=== PATIENT | female | born 1945 | race Caucasian/White ===

== ENCOUNTER 2017-10-27 09:43 | Emergency (ER) | payer MEDICARE, MEDICAID ==
[~2017-10-27] VITALS: Ht 167.6 cm; Wt 57.0 kg
[~2017-10-27 09:43] MED LIST: ALBU0.63 NEB; ALBU90AE INH; BUDE0.5A INH; CARI250T; CEFD300C37 PO; DOXY100T PO; HYDR-3237 PO; LORA-445 PO; LORA10TA72 PO; MORP-52 PO; NICO-486 TD; PRED10TA14 PO; PRED5TAB PO; TIZA2CAP PO; TRAM100T2; [UNRECOGNIZED DRUG - REMARK]
[2017-10-27 10:29] LABS: BASOPHILS % (AUTO) 1 % (0-1); EOSINOPHILS # (AUTO) 0.06 x10^3/uL (0-0.4); EOSINOPHILS % (AUTO) 0 % (1-7); LYMPHOCYTES # (AUTO) 2.84 x10^3/uL (1-3.4); LYMPHOCYTES % (AUTO) 18 % (22-44); MD NO; MEAN CORPUSCULAR HEMOGLOBIN 30.3 pg (27.0-34.8); MEAN CORPUSCULAR HGB CONC 33.5 g/dL (32.4-35.8); MEAN CORPUSCULAR VOLUME 90.6 fL (80-100); MEAN PLATELET VOLUME 8.1 fL (7.4-10.4); MONOCYTES # (AUTO) 0.73 x10^3/uL (0.2-0.8); MONOCYTES % (AUTO) 5 % (2-9); NEUTROPHILS # (AUTO) 12.04 x10^3/uL (1.8-6.8); NEUTROPHILS % (AUTO) 76 % (42-75); PLATELET COUNT 231 x10^3/uL (130-400); RED BLOOD COUNT 4.83 x10^6/uL (3.82-5.3); RED CELL DISTRIBUTION WIDTH 15.1 % (9.6-15.2)
[2017-10-27 10:40] LABS: ALANINE AMINOTRANSFERASE 22 U/L (12-78); ALBUMIN 3.2 g/dL (3.4-5.0); ANION GAP 6 mmol/L (5-15); CALCIUM 8.6 mg/dL (8.5-10.1); CHLORIDE 105 mmol/L (98-107); CREATININE 0.63 mg/dL (0.55-1.02)
[2017-10-27 10:42] LABS: ALKALINE PHOSPHATASE 55 U/L (45-117); BILIRUBIN,TOTAL 0.3 mg/dL (0.2-1.0); TOTAL PROTEIN 6.3 g/dL (6.4-8.2)
[2017-10-27 12:17] VITALS: BP 145/73
== END 2017-10-27 12:19 | disposition home or self-care (01) ==
LOC: ED 10:47
DX: J44.1 Chronic obstructive pulmonary disease with (acute) exacerbation (principal); I10 Essential (primary) hypertension; F17.210 Nicotine dependence, cigarettes, uncomplicated
CPT/HCPCS: 36415; 71046; 80053; 85025; 93005; 99285; J7512

== ENCOUNTER 2017-11-24 19:38 | Inpatient (IN) | payer MEDICARE, MEDICAID ==
[~2017-11-24] VITALS: Ht 167.6 cm; Wt 51.4 kg
[2017-11-24 20:14] LABS: BASOPHILS # (AUTO) 0.12 x10^3/uL (0-0.1); BASOPHILS % (AUTO) 1 % (0-1); EOSINOPHILS # (AUTO) 0.05 x10^3/uL (0-0.4); EOSINOPHILS % (AUTO) 0 % (1-7); LYMPHOCYTES # (AUTO) 2.29 x10^3/uL (1-3.4); LYMPHOCYTES % (AUTO) 18 % (22-44); MD NO; MEAN CORPUSCULAR HEMOGLOBIN 30.3 pg (27.0-34.8); MEAN CORPUSCULAR HGB CONC 33.1 g/dL (32.4-35.8); MEAN CORPUSCULAR VOLUME 91.5 fL (80-100); MEAN PLATELET VOLUME 8.1 fL (7.4-10.4); MONOCYTES % (AUTO) 8 % (2-9); NEUTROPHILS # (AUTO) 9.48 x10^3/uL (1.8-6.8); NEUTROPHILS % (AUTO) 73 % (42-75); PLATELET COUNT 253 x10^3/uL (130-400); RED BLOOD COUNT 4.94 x10^6/uL (3.82-5.3); RED CELL DISTRIBUTION WIDTH 15.3 % (9.6-15.2)
[2017-11-24 20:23] LABS: ALBUMIN 3.3 g/dL (3.4-5.0); ANION GAP 6 mmol/L (5-15); CALCIUM 9.3 mg/dL (8.5-10.1); CHLORIDE 107 mmol/L (98-107); CREATININE 0.78 mg/dL (0.55-1.02)
[2017-11-24 20:27] LABS: TROPONIN I < 0.015 ng/mL (0.000-0.045)
[2017-11-24] MEDS ORDERED: OMEP-110 PO (21:26)
[2017-11-24] MEDS ORDERED: GABA300C10 PO (21:26)
[2017-11-24] MEDS ORDERED: POLY17PO3 PO (21:26)
[2017-11-24] MEDS ORDERED: ASPI-496 PO (21:26)
[2017-11-24] MEDS ORDERED: MAG355OR35 PO (21:26)
[2017-11-24] MEDS ORDERED: BENZ-17 PO (22:26)
[2017-11-24] MEDS ORDERED: NITR0.4T28 SL (22:26)
[2017-11-24] MEDS ORDERED: CARI350T14 PO (22:26)
[2017-11-24] MEDS ORDERED: ONDANSETRON 2MG/ML, 2ML IVPush PRN ×2 (22:30→23:00)
[2017-11-24] MEDS ORDERED: hydrALAzine 20 MG/ML, 1ML IVPush PRN (23:00)
[2017-11-24] MEDS ORDERED: NITROGLYCERIN 0.4 MG BOTTLE (25 TABS) SL PRN (23:00)
[2017-11-24] MEDS ORDERED: ALBUTEROL SULFATE 2.5 MG/3 ML NEB PRN (23:00)
[2017-11-24] MEDS ORDERED: GUAIFENESIN/DM 200-20MG, 10ML UDC PO PRN (23:00)
[2017-11-24] MEDS: ENOXAPARIN 40 MG/0.4 ML SQ SCH (23:00)
[2017-11-24] MEDS ORDERED: BENZONATATE 100 MG CAPSULE PO PRN (23:00)
[2017-11-24] MEDS ORDERED: ALBUTEROL/IPRATROPIUM 2.5MG/0.5MG, 3 ML NPPB PRN (23:30)
[2017-11-25 00:08] VITALS: BP_SYST 173; BP_SYST 190; BP_DIAS 67; BP_DIAS 81
[2017-11-25] MEDS: ALBUTEROL/IPRATROPIUM 2.5MG/0.5MG, 3 ML NPPB SCH ×6 (00:13→22:25)
[2017-11-25] MEDS: BUDESONIDE 0.5 MG/2 ML INHA INH SCH ×2 (00:23→09:00)
[2017-11-25] MEDS: methylPREDNISolone SOD SUCC 40 MG/ML IVPush SCH ×5 (00:32→23:12)
[2017-11-25] MEDS: SODIUM CHLORIDE 0.9% 1,000 ML IV SCH ×2 (00:32→13:10)
[2017-11-25] MEDS: GABAPENTIN 300 MG CAPSULE PO SCH ×4 (00:32→20:31)
[2017-11-25 06:36] VITALS: BP 163/74
[2017-11-25] MEDS: ENOXAPARIN 40 MG/0.4 ML SQ SCH (08:00)
[2017-11-25] MEDS: LORATADINE 10 MG TABLET PO SCH (09:35)
[2017-11-25] MEDS: ASPIRIN 81 MG TABLET EC PO SCH (09:36)
[2017-11-25] MEDS: POLYETHYLENE GLYCOL 17 GM PACKET PO SCH (09:36)
[2017-11-25] MEDS: ALUMINUM/MAG/SIMETHICONE 30 ML UDC PO SCH (09:36)
[2017-11-25] MEDS: OMEPRAZOLE 20 MG CAPSULE.DR PO SCH (11:19)
[2017-11-25 11:53] VITALS: BP 176/81
[2017-11-25 13:11] VITALS: BP 147/91
[2017-11-25 13:14] VITALS: BP 150/88
[2017-11-25 18:46] VITALS: BP 154/85
[2017-11-26] MEDS: SODIUM CHLORIDE 0.9% 1,000 ML IV SCH (01:45)
[2017-11-26 02:54] VITALS: BP 159/84
[2017-11-26] MEDS: ACETAMINOPHEN 325 MG TABLET PO PRN ×3 (04:11→23:26)
[2017-11-26 05:07] LABS: BASOPHILS # (AUTO) 0.01 x10^3/uL (0-0.1); BASOPHILS % (AUTO) 0 % (0-1); EOSINOPHILS % (AUTO) 0 % (1-7); LYMPHOCYTES # (AUTO) 0.61 x10^3/uL (1-3.4); LYMPHOCYTES % (AUTO) 6 % (22-44); MD NO; MEAN CORPUSCULAR HEMOGLOBIN 29.8 pg (27.0-34.8); MEAN CORPUSCULAR HGB CONC 32.9 g/dL (32.4-35.8); MEAN CORPUSCULAR VOLUME 90.7 fL (80-100); MEAN PLATELET VOLUME 8.5 fL (7.4-10.4); MONOCYTES % (AUTO) 2 % (2-9); NEUTROPHILS # (AUTO) 9.37 x10^3/uL (1.8-6.8); NEUTROPHILS % (AUTO) 92 % (42-75); PLATELET COUNT 257 x10^3/uL (130-400); RED BLOOD COUNT 4.55 x10^6/uL (3.82-5.3); RED CELL DISTRIBUTION WIDTH 15.6 % (9.6-15.2)
[2017-11-26 05:18] LABS: ANION GAP 8 mmol/L (5-15); CHLORIDE 105 mmol/L (98-107); CREATININE 0.65 mg/dL (0.55-1.02)
[2017-11-26] MEDS: methylPREDNISolone SOD SUCC 40 MG/ML IVPush SCH (05:33)
[2017-11-26] MEDS: ALBUTEROL/IPRATROPIUM 2.5MG/0.5MG, 3 ML NPPB SCH ×5 (06:00→22:29)
[2017-11-26 07:05] VITALS: BP 146/86
[2017-11-26] MEDS: ENOXAPARIN 40 MG/0.4 ML SQ SCH (08:00)
[2017-11-26] MEDS: LORATADINE 10 MG TABLET PO SCH (08:05)
[2017-11-26] MEDS: OMEPRAZOLE 20 MG CAPSULE.DR PO SCH (08:06)
[2017-11-26] MEDS: ASPIRIN 81 MG TABLET EC PO SCH (08:06)
[2017-11-26] MEDS: GABAPENTIN 300 MG CAPSULE PO SCH ×3 (08:06→20:57)
[2017-11-26] MEDS: POLYETHYLENE GLYCOL 17 GM PACKET PO SCH (08:06)
[2017-11-26] MEDS: ALUMINUM/MAG/SIMETHICONE 30 ML UDC PO SCH (08:07)
[2017-11-26] MEDS: FLUTICASONE/VILANTEROL 100-25MCG/INH INH SCH (09:36)
[2017-11-26] MEDS: LISINOPRIL 10 MG TABLET PO SCH (10:45)
[2017-11-26] MEDS: predniSONE 50MG TABLET PO SCH (10:45)
[2017-11-26 13:33] VITALS: BP 147/89
[2017-11-26] MEDS ORDERED: FLUT1AER INH (16:58)
[2017-11-26] MEDS ORDERED: PRED50TA PO (16:58)
[2017-11-26] MEDS ORDERED: GUAI5SYR PO (16:58)
[2017-11-26] MEDS ORDERED: LISI-167 PO (16:58)
[2017-11-26] MEDS ORDERED: methylPREDNISolone SOD SUCC 40 MG/ML IVPush SCH (17:00)
[2017-11-26 19:45] VITALS: BP 171/93
[2017-11-26] MEDS ORDERED: NICOTINE 14MG/24 HR PATCH.TD24 TD SCH (20:00)
[2017-11-26 20:33] VITALS: BP 166/82
[2017-11-26] MEDS ORDERED: BISACODYL 5 MG EC TABLET PO PRN (22:30)
[2017-11-27 02:00] VITALS: BP 113/69
[2017-11-27 06:39] VITALS: BP 150/75
[2017-11-27] MEDS: ALBUTEROL/IPRATROPIUM 2.5MG/0.5MG, 3 ML NPPB SCH ×2 (07:30→11:55)
[2017-11-27] MEDS: ACETAMINOPHEN 325 MG TABLET PO PRN ×2 (07:42→12:31)
[2017-11-27] MEDS: predniSONE 50MG TABLET PO SCH (07:42)
[2017-11-27] MEDS: ENOXAPARIN 40 MG/0.4 ML SQ SCH (08:00)
[2017-11-27] MEDS: ALUMINUM/MAG/SIMETHICONE 30 ML UDC PO SCH (09:00)
[2017-11-27] MEDS: FLUTICASONE/VILANTEROL 100-25MCG/INH INH SCH (09:24)
[2017-11-27] MEDS: LORATADINE 10 MG TABLET PO SCH (09:25)
[2017-11-27] MEDS: POLYETHYLENE GLYCOL 17 GM PACKET PO SCH (09:25)
[2017-11-27] MEDS: OMEPRAZOLE 20 MG CAPSULE.DR PO SCH (09:25)
[2017-11-27] MEDS: ASPIRIN 81 MG TABLET EC PO SCH (09:25)
[2017-11-27] MEDS: GABAPENTIN 300 MG CAPSULE PO SCH (09:26)
[2017-11-27] MEDS: LISINOPRIL 10 MG TABLET PO SCH (09:26)
== END 2017-11-27 13:38 | DRG 189 ==
LOC: ED 22:00 → EDIP 22:27 → 3NE 11-25 00:04
PROVIDERS: ADMIT Hospitalist; ATTEND Hospitalist
DX: J96.21 Acute and chronic respiratory failure with hypoxia (principal); I11.0 Hypertensive heart disease with heart failure; I50.9 Heart failure, unspecified; Z99.81 Dependence on supplemental oxygen; J44.1 Chronic obstructive pulmonary disease with (acute) exacerbation; G89.29 Other chronic pain; M54.9 Dorsalgia, unspecified; R62.7 Adult failure to thrive; F17.210 Nicotine dependence, cigarettes, uncomplicated; Z90.710 Acquired absence of both cervix and uterus; Z88.1 Allergy status to other antibiotic agents; Z91.048 Other nonmedicinal substance allergy status; Z87.11 Personal history of peptic ulcer disease
CPT/HCPCS: 36415; 71045; 80048; 82040; 83605; 83880; 84145; 84484; 85025; 87040; 94640; 99285; J7620; J7626; J0360; J2920; J7030; J7512

== ENCOUNTER 2018-01-24 01:25 | Inpatient (IN) | payer MEDICARE, MEDICAID ==
[~2018-01-24] VITALS: Ht 167.6 cm; Wt 54.4 kg
[~2018-01-24 01:25] MED LIST changes: +ASPI-496 PO; +BENZ-17 PO; +CARI350T14 PO; +FLUT1AER INH; +GABA300C10 PO; +GUAI5SYR PO; +LISI-167 PO; +MAG355OR35 PO; +NITR0.4T28 SL; +OMEP-110 PO; +POLY17PO3 PO; +PRED50TA PO; -TRAM100T2; +TRAM100T33
[2018-01-24] MEDS ORDERED: PROMETHAZINE 25 MG/ML, 1ML ONE (01:55)
[2018-01-24] MEDS ORDERED: MAALOX/HYOSCYAMINE/LIDOCAINE 45 ML BTL ONE (01:55)
[2018-01-24] MEDS ORDERED: PROMETHAZINE 25 MG/ML, 1ML IM ONE (02:00)
[2018-01-24] MEDS ORDERED: MAALOX/HYOSCYAMINE/LIDOCAINE 45 ML BTL PO ONE (02:00)
[2018-01-24 02:01] LABS: MEAN CORPUSCULAR HEMOGLOBIN 30.3 pg (27.0-34.8); MEAN CORPUSCULAR HGB CONC 33.6 g/dL (32.4-35.8); MEAN CORPUSCULAR VOLUME 90.3 fL (80-100); MEAN PLATELET VOLUME 9.2 fL (7.4-10.4); PLATELET COUNT 307 x10^3/uL (130-400); RED BLOOD COUNT 4.96 x10^6/uL (3.82-5.3)
[2018-01-24 02:07] LABS: PROTHROMBIN TIME 10.3 Seconds (9.6-11.5)
[2018-01-24 02:10] LABS: ALANINE AMINOTRANSFERASE 17 U/L (12-78); ALBUMIN 2.9 g/dL (3.4-5.0); ANION GAP 13 mmol/L (5-15); CHLORIDE 91 mmol/L (98-107); CREATININE 0.72 mg/dL (0.55-1.02)
[2018-01-24 02:15] LABS: ALKALINE PHOSPHATASE 54 U/L (45-117); BILIRUBIN,TOTAL 0.5 mg/dL (0.2-1.0); TOTAL PROTEIN 6.1 g/dL (6.4-8.2); TROPONIN I < 0.015 ng/mL (0.000-0.045)
[2018-01-24] MEDS ORDERED: POTASSIUM CHLORIDE 40 MEQ in SODIUM CHLORIDE 0.9% 500 ML IV ONE (02:30)
[2018-01-24] MEDS ORDERED: AZITHROMYCIN 500 MG in SODIUM CHLORIDE 0.9% 250 ML IVPB ONE (02:30)
[2018-01-24] MEDS ORDERED: CEFTRIAXONE PMX 1GM/50ML 50 ML IVPB ONE (02:30)
[2018-01-24] MEDS ORDERED: ALBUTEROL/IPRATROPIUM 2.5MG/0.5MG, 3 ML NPPB ONE (02:30)
[2018-01-24] MEDS ORDERED: methylPREDNISolone SOD SUCC 125 MG/2 ML IVP ONE (02:30)
[2018-01-24] MEDS ORDERED: SODIUM CHLORIDE FLUSH 10ML SYR IVF ONE (02:30)
[2018-01-24 02:34] LABS: BASOPHILS # (AUTO) 0.06 x10^3/uL (0-0.1); BASOPHILS % (AUTO) 0 % (0-1); EOSINOPHILS % (AUTO) 0 % (1-7); LYMPHOCYTES # (AUTO) 1.11 x10^3/uL (1-3.4); LYMPHOCYTES % (AUTO) 6 % (22-44); MD SCAN; MONOCYTES % (AUTO) 4 % (2-9); NEUTROPHILS # (AUTO) 17.76 x10^3/uL (1.8-6.8); NEUTROPHILS % (AUTO) 91 % (42-75)
[2018-01-24] MEDS ORDERED: POTASSIUM CHLORIDE 20 MEQ TAB.ER.PRT PO ONE (03:00)
[2018-01-24] MEDS ORDERED: POTASSIUM CHLORIDE 10% 40 MEQ/30 ML UDC PO ONE (03:00)
[2018-01-24] MEDS ORDERED: CEFTRIAXONE PMX 1GM/50ML 50 ML ONE (03:01)
[2018-01-24] MEDS ORDERED: methylPREDNISolone SOD SUCC 125 MG/2 ML ONE (03:01)
[2018-01-24 03:57] VITALS: BP 132/82
[2018-01-24] MEDS ORDERED: METH750T2 PO (04:43)
[2018-01-24] MEDS ORDERED: CARI350T14 PO (04:43)
[2018-01-24] MEDS ORDERED: MELA1TAB8 PO (04:43)
[2018-01-24] MEDS ORDERED: NS + 20MEQ KCL 1,000 ML IV SCH (05:06)
[2018-01-24] MEDS: ENOXAPARIN 40 MG/0.4 ML SQ SCH (05:30)
[2018-01-24] MEDS ORDERED: NITROGLYCERIN 0.4 MG BOTTLE (25 TABS) SL PRN (05:30)
[2018-01-24] MEDS ORDERED: HYDROcodone/APAP 5/325 TABLET PO PRN (05:30)
[2018-01-24] MEDS ORDERED: CARISOPRODOL 350 MG TABLET PO PRN (05:30)
[2018-01-24] MEDS ORDERED: POLYETHYLENE GLYCOL 17 GM PACKET PO PRN (05:30)
[2018-01-24] MEDS ORDERED: TEMPLATE NON-FORMULARY MED. (Albuterol Sulfate (Proair Respiclick) 2 PUFF(S)) INH PRN (05:30)
[2018-01-24] MEDS ORDERED: GUAIFENESIN/DM 100-10MG, 5ML UDC PO PRN (05:30)
[2018-01-24] MEDS ORDERED: DOCUSATE 100 MG CAPSULE PO PRN (05:30)
[2018-01-24] MEDS ORDERED: ALBUTEROL SULFATE 2.5 MG/3 ML NPPB PRN (05:30)
[2018-01-24] MEDS ORDERED: morphine SULFATE 10 MG/ML, 1ML IVPush PRN (05:30)
[2018-01-24] MEDS ORDERED: ONDANSETRON 2MG/ML, 2ML IVPush PRN (05:30)
[2018-01-24] MEDS: AZITHROMYCIN 500 MG in SODIUM CHLORIDE 0.9% 250 ML IV SCH (05:47)
[2018-01-24] MEDS: METHOCARBAMOL 750 MG TABLET PO SCH ×4 (05:48→22:30)
[2018-01-24] MEDS: NICOTINE 7 MG/24 HR PATCH.TD24 TD SCH (05:48)
[2018-01-24 06:37] VITALS: BP 107/71
[2018-01-24] MEDS: ALBUTEROL/IPRATROPIUM 2.5MG/0.5MG, 3 ML NPPB SCH ×4 (07:00→20:21)
[2018-01-24] MEDS: POLYETHYLENE GLYCOL 17 GM PACKET PO SCH (08:33)
[2018-01-24] MEDS: ALUMINUM/MAG/SIMETHICONE 30 ML UDC PO SCH (08:33)
[2018-01-24] MEDS: FAMOTIDINE 20 MG TABLET PO SCH ×2 (08:34→22:30)
[2018-01-24] MEDS: LORATADINE 10 MG TABLET PO SCH (08:34)
[2018-01-24] MEDS: GABAPENTIN 300 MG CAPSULE PO SCH ×3 (08:34→22:30)
[2018-01-24] MEDS: SENNA/DOCUSATE TABLET PO SCH (08:34)
[2018-01-24] MEDS: ASPIRIN 81 MG TABLET EC PO SCH (08:34)
[2018-01-24] MEDS: methylPREDNISolone SOD SUCC 125 MG/2 ML IVPush SCH ×2 (11:45→22:30)
[2018-01-24 12:21] VITALS: BP 102/66
[2018-01-24 13:46] LABS: ANION GAP 9 mmol/L (5-15); CALCIUM 8.4 mg/dL (8.5-10.1); CHLORIDE 97 mmol/L (98-107)
[2018-01-24 13:47] LABS: CREATININE 0.72 mg/dL (0.55-1.02)
[2018-01-24 20:00] VITALS: BP 129/74
[2018-01-24] MEDS ORDERED: MELATONIN 5 MG TABLET PO SCH (21:00)
[2018-01-24] MEDS: PYRIDOXINE 25MG TABLET PO SCH (22:30)
[2018-01-24 23:24] LABS: CLOSTRIDIUM DIFFICILE ANTIGEN POSITIVE; CLOSTRIDIUM DIFFICILE TOXIN NEGATIVE (Negative)
[2018-01-25] VITALS (7 sets, daily range): BP systolic 108–130; BP diastolic 69–79
[2018-01-25] MEDS: VANCOMYCIN 50 MG/ML ORAL SUSP PO SCH ×4 (01:05→18:30)
[2018-01-25] MEDS: CEFTRIAXONE PMX 1GM/50ML 50 ML IV SCH (03:55)
[2018-01-25] MEDS: ENOXAPARIN 40 MG/0.4 ML SQ SCH (05:30)
[2018-01-25 05:43] LABS: CALCIUM 9.3 mg/dL (8.5-10.1); CHLORIDE 99 mmol/L (98-107)
[2018-01-25 05:47] LABS: ANION GAP 13 mmol/L (5-15); CREATININE 0.92 mg/dL (0.55-1.02)
[2018-01-25] MEDS: AZITHROMYCIN 500 MG in SODIUM CHLORIDE 0.9% 250 ML IV SCH (05:52)
[2018-01-25] MEDS: NICOTINE 7 MG/24 HR PATCH.TD24 TD SCH (05:53)
[2018-01-25] MEDS: methylPREDNISolone SOD SUCC 125 MG/2 ML IVPush SCH ×2 (05:53→18:29)
[2018-01-25] MEDS: METHOCARBAMOL 750 MG TABLET PO SCH ×4 (05:53→21:00)
[2018-01-25] MEDS: ALBUTEROL/IPRATROPIUM 2.5MG/0.5MG, 3 ML NPPB SCH ×4 (07:00→20:01)
[2018-01-25] MEDS: POLYETHYLENE GLYCOL 17 GM PACKET PO SCH (09:00)
[2018-01-25] MEDS: SENNA/DOCUSATE TABLET PO SCH (09:00)
[2018-01-25 09:48] LABS: MEAN CORPUSCULAR HGB CONC 33.3 g/dL (32.4-35.8); MEAN CORPUSCULAR VOLUME 89.9 fL (80-100); PLATELET COUNT 342 x10^3/uL (130-400); RED BLOOD COUNT 4.87 x10^6/uL (3.82-5.3); RED CELL DISTRIBUTION WIDTH 14.4 % (9.6-15.2)
[2018-01-25] MEDS: GABAPENTIN 300 MG CAPSULE PO SCH ×3 (10:49→21:28)
[2018-01-25] MEDS: ASPIRIN 81 MG TABLET EC PO SCH (10:49)
[2018-01-25] MEDS: LORATADINE 10 MG TABLET PO SCH (10:49)
[2018-01-25] MEDS: FAMOTIDINE 20 MG TABLET PO SCH ×2 (10:49→21:27)
[2018-01-25] MEDS: ALUMINUM/MAG/SIMETHICONE 30 ML UDC PO SCH (10:49)
[2018-01-25 12:27] LABS: MD YES
[2018-01-25 12:28] LABS: BAND#(MANUAL) 0.49 x10^3/uL; BANDS%(MANUAL) 2 % (0-7); LYMPH#(MANUAL) 2.19 x10^3/uL (1-3.4); LYMPHS% (MANUAL) 9 % (22-44); MONOS#(MANUAL) 0.24 x10^3/uL (0.3-2.7); MONOS% (MANUAL) 1 % (2-9); SEG#(MANUAL) 21.38 x10^3/uL (1.8-6.8); SEGS% (MANUAL) 88 % (42-75)
[2018-01-25 12:31] LABS: <PLATELET ESTIMATE> ADEQUATE; <RBC MORPHOLOGY> NORMAL
[2018-01-25 12:32] LABS: LARGE PLATELETS 1+
[2018-01-25] MEDS: PYRIDOXINE 25MG TABLET PO SCH (21:27)
[2018-01-26] MEDS: VANCOMYCIN 50 MG/ML ORAL SUSP PO SCH ×5 (00:10→23:57)
[2018-01-26 03:29] VITALS: BP 102/57
[2018-01-26] MEDS: CEFTRIAXONE PMX 1GM/50ML 50 ML IV SCH (03:43)
[2018-01-26] MEDS: ENOXAPARIN 40 MG/0.4 ML SQ SCH (05:03)
[2018-01-26] MEDS: AZITHROMYCIN 500 MG in SODIUM CHLORIDE 0.9% 250 ML IV SCH (05:03)
[2018-01-26] MEDS: NICOTINE 7 MG/24 HR PATCH.TD24 TD SCH (05:03)
[2018-01-26] MEDS: methylPREDNISolone SOD SUCC 125 MG/2 ML IVPush SCH (05:03)
[2018-01-26 06:11] LABS: MEAN CORPUSCULAR HEMOGLOBIN 30.6 pg (27.0-34.8); MEAN CORPUSCULAR HGB CONC 33.4 g/dL (32.4-35.8); MEAN CORPUSCULAR VOLUME 91.8 fL (80-100); PLATELET COUNT 316 x10^3/uL (130-400); RED BLOOD COUNT 4.24 x10^6/uL (3.82-5.3); RED CELL DISTRIBUTION WIDTH 14.5 % (9.6-15.2)
[2018-01-26] MEDS: METHOCARBAMOL 750 MG TABLET PO SCH ×4 (06:14→21:34)
[2018-01-26 06:24] LABS: ANION GAP 7 mmol/L (5-15); CALCIUM 8.6 mg/dL (8.5-10.1); CHLORIDE 101 mmol/L (98-107); CREATININE 0.78 mg/dL (0.55-1.02)
[2018-01-26 06:47] LABS: BASOPHILS # (AUTO) 0.09 x10^3/uL (0-0.1); BASOPHILS % (AUTO) 1 % (0-1); EOSINOPHILS % (AUTO) 0 % (1-7); LYMPHOCYTES # (AUTO) 0.89 x10^3/uL (1-3.4); LYMPHOCYTES % (AUTO) 5 % (22-44); MD SCAN; MONOCYTES # (AUTO) 0.72 x10^3/uL (0.2-0.8); MONOCYTES % (AUTO) 4 % (2-9); NEUTROPHILS % (AUTO) 91 % (42-75)
[2018-01-26] MEDS: ALBUTEROL/IPRATROPIUM 2.5MG/0.5MG, 3 ML NPPB SCH ×4 (07:01→17:15)
[2018-01-26 07:12] VITALS: BP 113/65
[2018-01-26] MEDS: FAMOTIDINE 20 MG TABLET PO SCH ×2 (09:47→21:34)
[2018-01-26] MEDS: GABAPENTIN 300 MG CAPSULE PO SCH ×3 (09:47→21:34)
[2018-01-26] MEDS: LORATADINE 10 MG TABLET PO SCH (09:48)
[2018-01-26] MEDS: ALUMINUM/MAG/SIMETHICONE 30 ML UDC PO SCH (09:48)
[2018-01-26] MEDS: ASPIRIN 81 MG TABLET EC PO SCH (09:48)
[2018-01-26] MEDS: SENNA/DOCUSATE TABLET PO SCH (09:49)
[2018-01-26] MEDS: POLYETHYLENE GLYCOL 17 GM PACKET PO SCH (09:49)
[2018-01-26 13:38] VITALS: BP 113/72
[2018-01-26 19:30] VITALS: BP 123/73
[2018-01-26] MEDS: PYRIDOXINE 25MG TABLET PO SCH (21:34)
[2018-01-27] MEDS: HYDROcodone/APAP 5/325 TABLET PO PRN
[2018-01-27 01:22] VITALS: BP 137/82
[2018-01-27] MEDS: CEFTRIAXONE PMX 1GM/50ML 50 ML IV SCH (03:25)
[2018-01-27] MEDS: ENOXAPARIN 40 MG/0.4 ML SQ SCH (05:30)
[2018-01-27] MEDS: NICOTINE 7 MG/24 HR PATCH.TD24 TD SCH (05:30)
[2018-01-27] MEDS: VANCOMYCIN 50 MG/ML ORAL SUSP PO SCH ×3 (05:48→16:54)
[2018-01-27] MEDS: METHOCARBAMOL 750 MG TABLET PO SCH ×4 (05:48→20:41)
[2018-01-27] MEDS: AZITHROMYCIN 500 MG in SODIUM CHLORIDE 0.9% 250 ML IV SCH (05:49)
[2018-01-27 05:59] LABS: MEAN CORPUSCULAR HEMOGLOBIN 30.2 pg (27.0-34.8); MEAN CORPUSCULAR HGB CONC 33.1 g/dL (32.4-35.8); MEAN CORPUSCULAR VOLUME 91.3 fL (80-100); MEAN PLATELET VOLUME 8.9 fL (7.4-10.4); PLATELET COUNT 294 x10^3/uL (130-400); RED BLOOD COUNT 3.92 x10^6/uL (3.82-5.3); RED CELL DISTRIBUTION WIDTH 14.5 % (9.6-15.2)
[2018-01-27 06:05] LABS: CHLORIDE 103 mmol/L (98-107)
[2018-01-27 06:43] LABS: BASOPHILS # (AUTO) 0.02 x10^3/uL (0-0.1); BASOPHILS % (AUTO) 0 % (0-1); EOSINOPHILS # (AUTO) 0.01 x10^3/uL (0-0.4); EOSINOPHILS % (AUTO) 0 % (1-7); LYMPHOCYTES # (AUTO) 2.31 x10^3/uL (1-3.4); LYMPHOCYTES % (AUTO) 18 % (22-44); MD SCAN; MONOCYTES # (AUTO) 1.17 x10^3/uL (0.2-0.8); MONOCYTES % (AUTO) 9 % (2-9); NEUTROPHILS # (AUTO) 9.11 x10^3/uL (1.8-6.8); NEUTROPHILS % (AUTO) 72 % (42-75)
[2018-01-27 06:51] LABS: ALANINE AMINOTRANSFERASE 16 U/L (12-78); ALBUMIN 2.3 g/dL (3.4-5.0); ALKALINE PHOSPHATASE 40 U/L (45-117); ANION GAP 6 mmol/L (5-15); BILIRUBIN,TOTAL 0.2 mg/dL (0.2-1.0); CALCIUM 8.1 mg/dL (8.5-10.1); CREATININE 0.62 mg/dL (0.55-1.02); TOTAL PROTEIN 4.5 g/dL (6.4-8.2)
[2018-01-27] MEDS: ALBUTEROL/IPRATROPIUM 2.5MG/0.5MG, 3 ML NPPB SCH ×4 (06:55→21:05)
[2018-01-27 07:00] VITALS: BP 132/79
[2018-01-27] MEDS ORDERED: POTASSIUM PHOSPHATE 44 MEQ in SODIUM CHLORIDE 0.9% 500 ML IV ONE (09:00)
[2018-01-27] MEDS: SENNA/DOCUSATE TABLET PO SCH (09:22)
[2018-01-27] MEDS: POLYETHYLENE GLYCOL 17 GM PACKET PO SCH (09:22)
[2018-01-27] MEDS: ALUMINUM/MAG/SIMETHICONE 30 ML UDC PO SCH (09:22)
[2018-01-27] MEDS: ASPIRIN 81 MG TABLET EC PO SCH (09:23)
[2018-01-27] MEDS: GABAPENTIN 300 MG CAPSULE PO SCH ×3 (09:23→20:42)
[2018-01-27] MEDS: LORATADINE 10 MG TABLET PO SCH (09:23)
[2018-01-27] MEDS: FAMOTIDINE 20 MG TABLET PO SCH ×2 (09:23→20:42)
[2018-01-27 14:00] VITALS: BP 112/74
[2018-01-27 16:32] VITALS: BP 112/74
[2018-01-27 19:57] VITALS: BP 122/74
[2018-01-27] MEDS: PYRIDOXINE 25MG TABLET PO SCH (20:41)
[2018-01-28] MEDS: VANCOMYCIN 50 MG/ML ORAL SUSP PO SCH ×4 (00:13→18:00)
[2018-01-28 01:49] VITALS: BP 146/85
[2018-01-28] MEDS: CEFTRIAXONE PMX 1GM/50ML 50 ML IV SCH (03:40)
[2018-01-28] MEDS: ALBUTEROL/IPRATROPIUM 2.5MG/0.5MG, 3 ML NPPB PRN (04:57)
[2018-01-28] MEDS: ENOXAPARIN 40 MG/0.4 ML SQ SCH ×2 (05:30→05:51)
[2018-01-28] MEDS: NICOTINE 7 MG/24 HR PATCH.TD24 TD SCH (05:30)
[2018-01-28] MEDS: AZITHROMYCIN 500 MG in SODIUM CHLORIDE 0.9% 250 ML IV SCH (05:51)
[2018-01-28] MEDS: METHOCARBAMOL 750 MG TABLET PO SCH ×4 (05:51→21:29)
[2018-01-28 06:32] LABS: BASOPHILS # (AUTO) 0.11 x10^3/uL (0-0.1); BASOPHILS % (AUTO) 1 % (0-1); EOSINOPHILS # (AUTO) 0.06 x10^3/uL (0-0.4); EOSINOPHILS % (AUTO) 1 % (1-7); LYMPHOCYTES # (AUTO) 3.35 x10^3/uL (1-3.4); LYMPHOCYTES % (AUTO) 25 % (22-44); MD NO; MEAN CORPUSCULAR HGB CONC 32.8 g/dL (32.4-35.8); MEAN CORPUSCULAR VOLUME 91.5 fL (80-100); MEAN PLATELET VOLUME 8.8 fL (7.4-10.4); MONOCYTES # (AUTO) 1.12 x10^3/uL (0.2-0.8); MONOCYTES % (AUTO) 8 % (2-9); NEUTROPHILS # (AUTO) 8.77 x10^3/uL (1.8-6.8); NEUTROPHILS % (AUTO) 65 % (42-75); PLATELET COUNT 338 x10^3/uL (130-400); RED BLOOD COUNT 4.22 x10^6/uL (3.82-5.3); RED CELL DISTRIBUTION WIDTH 14.3 % (9.6-15.2)
[2018-01-28 06:40] LABS: ANION GAP 3 mmol/L (5-15); CALCIUM 8.2 mg/dL (8.5-10.1); CHLORIDE 102 mmol/L (98-107)
[2018-01-28 06:42] LABS: CREATININE 0.43 mg/dL (0.55-1.02)
[2018-01-28 07:03] VITALS: BP 140/82
[2018-01-28] MEDS: LORATADINE 10 MG TABLET PO SCH (08:25)
[2018-01-28] MEDS: ALUMINUM/MAG/SIMETHICONE 30 ML UDC PO SCH (08:26)
[2018-01-28] MEDS: GABAPENTIN 300 MG CAPSULE PO SCH ×3 (08:26→21:30)
[2018-01-28] MEDS: ASPIRIN 81 MG TABLET EC PO SCH (08:26)
[2018-01-28] MEDS: POLYETHYLENE GLYCOL 17 GM PACKET PO SCH (08:26)
[2018-01-28] MEDS: SENNA/DOCUSATE TABLET PO SCH (08:26)
[2018-01-28] MEDS: FAMOTIDINE 20 MG TABLET PO SCH ×2 (08:26→21:29)
[2018-01-28] MEDS: ALBUTEROL/IPRATROPIUM 2.5MG/0.5MG, 3 ML NPPB SCH ×4 (08:45→20:00)
[2018-01-28] MEDS: HYDROcodone/APAP 5/325 TABLET PO PRN ×2 (08:46→14:57)
[2018-01-28 13:45] VITALS: BP 107/62
[2018-01-28 19:05] VITALS: BP 118/76
[2018-01-28] MEDS: PYRIDOXINE 25MG TABLET PO SCH (21:30)
[2018-01-29] MEDS: VANCOMYCIN 50 MG/ML ORAL SUSP PO SCH ×3 (00:50→13:20)
[2018-01-29 01:14] VITALS: BP 121/71
[2018-01-29] MEDS: CEFTRIAXONE PMX 1GM/50ML 50 ML IV SCH (04:35)
[2018-01-29] MEDS: HYDROcodone/APAP 5/325 TABLET PO PRN ×3 (04:35→16:54)
[2018-01-29] MEDS: ALBUTEROL/IPRATROPIUM 2.5MG/0.5MG, 3 ML NPPB PRN (05:05)
[2018-01-29] MEDS: ALBUTEROL/IPRATROPIUM 2.5MG/0.5MG, 3 ML NPPB SCH ×4 (05:05→20:00)
[2018-01-29] MEDS: NICOTINE 7 MG/24 HR PATCH.TD24 TD SCH ×2 (05:15→21:41)
[2018-01-29] MEDS: ENOXAPARIN 40 MG/0.4 ML SQ SCH ×2 (05:15→21:41)
[2018-01-29] MEDS: METHOCARBAMOL 750 MG TABLET PO SCH ×4 (06:00→21:49)
[2018-01-29] MEDS: AZITHROMYCIN 500 MG in SODIUM CHLORIDE 0.9% 250 ML IV SCH (06:00)
[2018-01-29 07:20] VITALS: BP 127/71
[2018-01-29] MEDS: LORATADINE 10 MG TABLET PO SCH (10:30)
[2018-01-29] MEDS: SENNA/DOCUSATE TABLET PO SCH (10:31)
[2018-01-29] MEDS: POLYETHYLENE GLYCOL 17 GM PACKET PO SCH (10:31)
[2018-01-29] MEDS: ASPIRIN 81 MG TABLET EC PO SCH (10:31)
[2018-01-29] MEDS: ALUMINUM/MAG/SIMETHICONE 30 ML UDC PO SCH (10:31)
[2018-01-29] MEDS: GABAPENTIN 300 MG CAPSULE PO SCH ×3 (10:31→21:49)
[2018-01-29] MEDS: FAMOTIDINE 20 MG TABLET PO SCH ×2 (10:31→21:49)
[2018-01-29 15:38] VITALS: BP 114/67
[2018-01-29 20:41] VITALS: BP 119/79
[2018-01-29] MEDS: PYRIDOXINE 25MG TABLET PO SCH (21:49)
[2018-01-29 22:24] VITALS: BP 117/77
[2018-01-30 01:16] VITALS: BP 126/78
[2018-01-30] MEDS: HYDROcodone/APAP 5/325 TABLET PO PRN ×3 (02:59→23:16)
[2018-01-30] MEDS: METHOCARBAMOL 750 MG TABLET PO SCH ×4 (05:50→20:13)
[2018-01-30] MEDS: ACETAMINOPHEN 325 MG TABLET PO PRN (05:50)
[2018-01-30 05:53] LABS: CHLORIDE 103 mmol/L (98-107)
[2018-01-30 06:00] LABS: ALANINE AMINOTRANSFERASE 28 U/L (12-78); ALBUMIN 2.2 g/dL (3.4-5.0); ALKALINE PHOSPHATASE 42 U/L (45-117); ANION GAP 6 mmol/L (5-15); BILIRUBIN,TOTAL 0.5 mg/dL (0.2-1.0); CALCIUM 8.3 mg/dL (8.5-10.1); CREATININE 0.49 mg/dL (0.55-1.02); TOTAL PROTEIN 4.6 g/dL (6.4-8.2)
[2018-01-30 06:03] LABS: MEAN CORPUSCULAR HGB CONC 32.7 g/dL (32.4-35.8); MEAN CORPUSCULAR VOLUME 91.7 fL (80-100); MEAN PLATELET VOLUME 8.4 fL (7.4-10.4); PLATELET COUNT 374 x10^3/uL (130-400); RED BLOOD COUNT 4.07 x10^6/uL (3.82-5.3)
[2018-01-30 06:36] LABS: BASOPHILS # (AUTO) 0.05 x10^3/uL (0-0.1); BASOPHILS % (AUTO) 0 % (0-1); EOSINOPHILS # (AUTO) 0.19 x10^3/uL (0-0.4); EOSINOPHILS % (AUTO) 1 % (1-7); LYMPHOCYTES # (AUTO) 3.44 x10^3/uL (1-3.4); LYMPHOCYTES % (AUTO) 19 % (22-44); MD SCAN; MONOCYTES # (AUTO) 1.28 x10^3/uL (0.2-0.8); MONOCYTES % (AUTO) 7 % (2-9); NEUTROPHILS % (AUTO) 72 % (42-75)
[2018-01-30] MEDS: ALBUTEROL/IPRATROPIUM 2.5MG/0.5MG, 3 ML NPPB SCH ×4 (06:41→19:49)
[2018-01-30 07:40] VITALS: BP 125/78
[2018-01-30] MEDS: ALUMINUM/MAG/SIMETHICONE 30 ML UDC PO SCH (08:46)
[2018-01-30] MEDS: ASPIRIN 81 MG TABLET EC PO SCH (08:47)
[2018-01-30] MEDS: SENNA/DOCUSATE TABLET PO SCH (08:47)
[2018-01-30] MEDS: POLYETHYLENE GLYCOL 17 GM PACKET PO SCH (08:47)
[2018-01-30] MEDS: LORATADINE 10 MG TABLET PO SCH (08:47)
[2018-01-30] MEDS: GABAPENTIN 300 MG CAPSULE PO SCH ×3 (08:47→20:13)
[2018-01-30] MEDS: FAMOTIDINE 20 MG TABLET PO SCH ×2 (08:47→20:13)
[2018-01-30 14:28] VITALS: BP 118/72
[2018-01-30] MEDS: PYRIDOXINE 25MG TABLET PO SCH (20:13)
[2018-01-30 20:59] VITALS: BP 109/64
[2018-01-31] MEDS: ACETAMINOPHEN 325 MG TABLET PO PRN (01:13)
[2018-01-31 01:37] VITALS: BP 145/73
[2018-01-31] MEDS: METHOCARBAMOL 750 MG TABLET PO SCH (05:02)
[2018-01-31] MEDS: NICOTINE 7 MG/24 HR PATCH.TD24 TD SCH (05:03)
[2018-01-31] MEDS: ENOXAPARIN 40 MG/0.4 ML SQ SCH (05:30)
[2018-01-31 07:44] VITALS: BP 145/72
[2018-01-31] MEDS: ALBUTEROL/IPRATROPIUM 2.5MG/0.5MG, 3 ML NPPB SCH (07:45)
[2018-01-31] MEDS: POLYETHYLENE GLYCOL 17 GM PACKET PO SCH (09:00)
[2018-01-31] MEDS: SENNA/DOCUSATE TABLET PO SCH (09:00)
[2018-01-31] MEDS: ALUMINUM/MAG/SIMETHICONE 30 ML UDC PO SCH (09:18)
[2018-01-31] MEDS: ASPIRIN 81 MG TABLET EC PO SCH (09:18)
[2018-01-31] MEDS: HYDROcodone/APAP 5/325 TABLET PO PRN (09:18)
[2018-01-31] MEDS: LORATADINE 10 MG TABLET PO SCH (09:18)
[2018-01-31] MEDS: FAMOTIDINE 20 MG TABLET PO SCH (09:18)
[2018-01-31] MEDS: GABAPENTIN 300 MG CAPSULE PO SCH (09:18)
== END 2018-01-31 11:52 | disposition left against medical advice (07) | DRG 871 ==
LOC: ED 02:57 → EDIP 03:00 → 4WST 03:54
PROVIDERS: ADMIT Family Medicine; ATTEND Family Medicine
DX: A41.9 Sepsis, unspecified organism (principal); J96.21 Acute and chronic respiratory failure with hypoxia; E43 Unspecified severe protein-calorie malnutrition; J18.1 Lobar pneumonia, unspecified organism; G93.41 Metabolic encephalopathy; I50.32 Chronic diastolic (congestive) heart failure; E87.1 Hypo-osmolality and hyponatremia; J44.0 Chronic obstructive pulmonary disease with (acute) lower respiratory infection; J44.1 Chronic obstructive pulmonary disease with (acute) exacerbation; Z68.1 Body mass index [BMI] 19.9 or less, adult; Z53.21 Procedure and treatment not carried out due to patient leaving prior to being seen by health care provider; E87.6 Hypokalemia; G89.29 Other chronic pain; R19.7 Diarrhea, unspecified; F17.200 Nicotine dependence, unspecified, uncomplicated; I11.0 Hypertensive heart disease with heart failure; Z87.11 Personal history of peptic ulcer disease; Z90.710 Acquired absence of both cervix and uterus; Z99.81 Dependence on supplemental oxygen
CPT/HCPCS: 36415; 36600; 70450; 71045; 80048; 80053; 82803; 83605; 83735; 83880; 84100; 84484; 85025; 85610; 85730; 87040; 87324; 87493; 87798; 93005; 94640; 96365; 96372; 96375; J0456; J0696; J1650; J2550; J3370; J3480; J7613; J7620; J2930; J7040; J7050; J7512

== ENCOUNTER 2018-02-05 20:51 | Inpatient (IN) | payer MEDICARE, MEDICAID ==
[~2018-02-05] VITALS: Ht 162.6 cm; Wt 47.1 kg
[~2018-02-05 20:51] MED LIST changes: +MELA1TAB8 PO; +METH750T2 PO; -TRAM100T33; +TRAM100T33 PO
[2018-02-05] MEDS ORDERED: ONDANSETRON 2MG/ML, 2ML IVPush ONE (21:30)
[2018-02-05 21:32] LABS: MEAN CORPUSCULAR HGB CONC 33.3 g/dL (32.4-35.8); MEAN CORPUSCULAR VOLUME 89.9 fL (80-100); MEAN PLATELET VOLUME 7.2 fL (7.4-10.4); PLATELET COUNT 415 x10^3/uL (130-400); RED BLOOD COUNT 3.84 x10^6/uL (3.82-5.3); RED CELL DISTRIBUTION WIDTH 14.4 % (9.6-15.2)
[2018-02-05 21:44] LABS: ALANINE AMINOTRANSFERASE 22 U/L (12-78); ALBUMIN 2.5 g/dL (3.4-5.0); ANION GAP 8 mmol/L (5-15); CALCIUM 8.5 mg/dL (8.5-10.1); CHLORIDE 97 mmol/L (98-107); CREATININE 0.41 mg/dL (0.55-1.02)
[2018-02-05 21:47] LABS: ALKALINE PHOSPHATASE 55 U/L (45-117); BILIRUBIN,TOTAL 0.4 mg/dL (0.2-1.0); TOTAL PROTEIN 5.7 g/dL (6.4-8.2); TROPONIN I < 0.015 ng/mL (0.000-0.045)
[2018-02-05] MEDS ORDERED: MORPHINE SULFATE 4 MG/ML, 1ML ONE (21:48)
[2018-02-05] MEDS ORDERED: ONDANSETRON 2MG/ML, 2ML ONE (21:48)
[2018-02-05 22:04] LABS: BASOPHILS # (AUTO) 0.41 x10^3/uL (0-0.1); BASOPHILS % (AUTO) 2 % (0-1); EOSINOPHILS # (AUTO) 0.03 x10^3/uL (0-0.4); EOSINOPHILS % (AUTO) 0 % (1-7); LYMPHOCYTES # (AUTO) 1.79 x10^3/uL (1-3.4); LYMPHOCYTES % (AUTO) 10 % (22-44); MD SCAN; MONOCYTES % (AUTO) 7 % (2-9); NEUTROPHILS # (AUTO) 14.75 x10^3/uL (1.8-6.8); NEUTROPHILS % (AUTO) 81 % (42-75)
[2018-02-05] MEDS ORDERED: SODIUM CHLORIDE 0.9% 1,000ML IVBOLUS ONE (23:00)
[2018-02-05] MEDS: MORPHINE SULFATE 4 MG/ML, 1ML IVPush PRN (23:03)
[2018-02-05] MEDS ORDERED: FLUT1DIS3 INH (23:24)
[2018-02-05] MEDS ORDERED: DICL75TA2 PO (23:24)
[2018-02-05] MEDS ORDERED: VOLTAREN (23:24)
[2018-02-05] MEDS ORDERED: TIZA2TAB PO (23:24)
[2018-02-05] MEDS ORDERED: ACET-76 PO (23:27)
[2018-02-06] MEDS ORDERED: MORPHINE SULFATE 4 MG/ML, 1ML ONE ×3 (01:20→14:39)
[2018-02-06] MEDS: MORPHINE SULFATE 4 MG/ML, 1ML IVPush PRN (01:26)
[2018-02-06] MEDS ORDERED: NS + 20MEQ KCL 1,000 ML IV ONE ×2 (01:30→01:41)
[2018-02-06] MEDS ORDERED: MORPHINE SULFATE 4 MG/ML, 1ML IVPush PRN (01:30)
[2018-02-06] MEDS ORDERED: ONDANSETRON 2MG/ML, 2ML IVPush PRN ×2 (01:30→02:00)
[2018-02-06] MEDS: POTASSIUM CHLORIDE 40 MEQ in D5%-0.9% NACL 1,000 ML IV SCH ×2 (01:58→11:18)
[2018-02-06] MEDS ORDERED: DOCUSATE 100 MG CAPSULE PO PRN (02:00)
[2018-02-06] MEDS ORDERED: ACETAMINOPHEN 325 MG TABLET PO PRN (02:00)
[2018-02-06] MEDS ORDERED: hydrALAzine 20 MG/ML, 1ML IVPush PRN (02:00)
[2018-02-06] MEDS ORDERED: ONDANSETRON ODT 4 MG PO PRN (02:00)
[2018-02-06] MEDS ORDERED: PROMETHAZINE 25 MG/ML, 1ML IM PRN (02:00)
[2018-02-06 02:23] LABS: MICROSCOPIC AUTO
[2018-02-06 02:26] LABS: CULTURE INDICATED? NO
[2018-02-06] MEDS ORDERED: POTASSIUM CHLORIDE 40 MEQ in SODIUM CHLORIDE 0.9% 500 ML IV ONE ×3 (02:30→20:00)
[2018-02-06] MEDS: NICOTINE 7 MG/24 HR PATCH.TD24 TD SCH (02:32)
[2018-02-06 02:33] LABS: FREE T4 (FREE THYROXINE) 1.37 ng/dL (0.76-1.46); THYROID STIMULATING HORMONE 0.473 mIU/L (0.358-3.740)
[2018-02-06] MEDS: HEPARIN 5,000 UNITS/ML, 1ML SQ SCH ×3 (02:33→18:00)
[2018-02-06] MEDS: PANTOPRAZOLE 40 MG IV IVPush SCH ×2 (02:33→13:45)
[2018-02-06 02:37] LABS: HEMOGLOBIN A1C 5.6 % (4.2-6.3)
[2018-02-06 02:52] VITALS: BP 114/64
[2018-02-06 02:54] LABS: MEAN CORPUSCULAR HEMOGLOBIN 29.7 pg (27.0-34.8); MEAN CORPUSCULAR HGB CONC 33.1 g/dL (32.4-35.8); MEAN CORPUSCULAR VOLUME 89.5 fL (80-100); MEAN PLATELET VOLUME 7.6 fL (7.4-10.4); PLATELET COUNT 380 x10^3/uL (130-400); RED BLOOD COUNT 3.81 x10^6/uL (3.82-5.3); RED CELL DISTRIBUTION WIDTH 14.1 % (9.6-15.2)
[2018-02-06 03:06] LABS: ALANINE AMINOTRANSFERASE 22 U/L (12-78); ALBUMIN 2.5 g/dL (3.4-5.0); ANION GAP 8 mmol/L (5-15); CALCIUM 8.2 mg/dL (8.5-10.1); CHLORIDE 99 mmol/L (98-107)
[2018-02-06 03:09] LABS: ALKALINE PHOSPHATASE 56 U/L (45-117); BILIRUBIN,TOTAL 0.4 mg/dL (0.2-1.0); CHOL/HDL RATIO 3.4; CHOLESTEROL, TOTAL 169 mg/dL (140-239); CREATININE 0.44 mg/dL (0.55-1.02); HDL CHOL % 30 % (28-40); HDL CHOLESTEROL (DIRECT) 50 mg/dL (40-60); LDL CHOLESTEROL,CALCULATED 95 mg/dL (54-169); LDL/HDL RATIO 1.9 (0.5-3.0); TOTAL PROTEIN 5.9 g/dL (6.4-8.2); TRIGLYCERIDES 119 mg/dL (50-200); VLDL CHOLESTEROL 24 mg/dL (0-25)
[2018-02-06 03:16] LABS: BASOPHILS # (AUTO) 0.05 x10^3/uL (0-0.1); BASOPHILS % (AUTO) 0 % (0-1); EOSINOPHILS # (AUTO) 0.03 x10^3/uL (0-0.4); EOSINOPHILS % (AUTO) 0 % (1-7); LYMPHOCYTES # (AUTO) 1.76 x10^3/uL (1-3.4); LYMPHOCYTES % (AUTO) 9 % (22-44); MD SCAN; MONOCYTES # (AUTO) 1.27 x10^3/uL (0.2-0.8); MONOCYTES % (AUTO) 6 % (2-9); NEUTROPHILS % (AUTO) 85 % (42-75)
[2018-02-06] MEDS: OXYcodone IR 5MG TABLET PO PRN ×4 (04:45→18:06)
[2018-02-06] MEDS: morphine SULFATE 10 MG/ML, 1ML IVPush PRN ×3 (06:33→14:47)
[2018-02-06 08:15] VITALS: BP 109/56
[2018-02-06] MEDS ORDERED: ALBUTEROL SULFATE 2.5 MG/3 ML NPPB PRN (11:00)
[2018-02-06 14:00] VITALS: BP 126/78
[2018-02-06] MEDS: ALBUTEROL SULFATE 2.5 MG/3 ML NPPB SCH ×2 (14:25→19:20)
[2018-02-06 20:49] VITALS: BP 94/58
[2018-02-07] MEDS: OXYcodone IR 5MG TABLET PO PRN ×2 (00:05→15:28)
[2018-02-07] MEDS: ALBUTEROL SULFATE 2.5 MG/3 ML NPPB SCH ×6 (00:17→23:40)
[2018-02-07] MEDS: HEPARIN 5,000 UNITS/ML, 1ML SQ SCH ×3 (01:16→16:34)
[2018-02-07] MEDS: PANTOPRAZOLE 40 MG IV IVPush SCH ×2 (01:16→14:27)
[2018-02-07] MEDS: NICOTINE 7 MG/24 HR PATCH.TD24 TD SCH (01:17)
[2018-02-07 02:21] VITALS: BP 93/58
[2018-02-07] MEDS: POTASSIUM CHLORIDE 40 MEQ in D5%-0.9% NACL 1,000 ML IV SCH (06:00)
[2018-02-07 06:44] VITALS: BP 133/81
[2018-02-07 11:12] LABS: BASOPHILS # (AUTO) 0.11 x10^3/uL (0-0.1); BASOPHILS % (AUTO) 1 % (0-1); EOSINOPHILS # (AUTO) 0.24 x10^3/uL (0-0.4); EOSINOPHILS % (AUTO) 2 % (1-7); LYMPHOCYTES # (AUTO) 2.43 x10^3/uL (1-3.4); LYMPHOCYTES % (AUTO) 18 % (22-44); MD NO; MEAN CORPUSCULAR HEMOGLOBIN 30.3 pg (27.0-34.8); MEAN CORPUSCULAR HGB CONC 32.8 g/dL (32.4-35.8); MEAN CORPUSCULAR VOLUME 92.3 fL (80-100); MEAN PLATELET VOLUME 7.7 fL (7.4-10.4); MONOCYTES # (AUTO) 0.93 x10^3/uL (0.2-0.8); MONOCYTES % (AUTO) 7 % (2-9); NEUTROPHILS % (AUTO) 73 % (42-75); PLATELET COUNT 299 x10^3/uL (130-400); RED BLOOD COUNT 2.94 x10^6/uL (3.82-5.3); RED CELL DISTRIBUTION WIDTH 14.6 % (9.6-15.2)
[2018-02-07 11:23] LABS: ALBUMIN 2.4 g/dL (3.4-5.0); ANION GAP 5 mmol/L (5-15); CALCIUM 8.6 mg/dL (8.5-10.1); CHLORIDE 105 mmol/L (98-107); CREATININE 0.49 mg/dL (0.55-1.02)
[2018-02-07 14:32] VITALS: BP 100/64
[2018-02-07 19:16] VITALS: BP 112/72
[2018-02-07] MEDS ORDERED: SODIUM PHOSPHATE 20 MMOL in SODIUM CHLORIDE 0.9% 500 ML IV ONE (21:30)
[2018-02-07 22:02] LABS: % IRON SATURATION 7 % (20-55); IRON LEVEL 15 mcg/dL (50-170); TOTAL IRON BINDING CAPACITY 201 mcg/dL (250-450)
[2018-02-08 00:15] VITALS: BP 121/69
[2018-02-08] MEDS: OXYcodone IR 5MG TABLET PO PRN ×2 (00:36→19:42)
[2018-02-08] MEDS: HEPARIN 5,000 UNITS/ML, 1ML SQ SCH ×3 (01:53→18:00)
[2018-02-08] MEDS: PANTOPRAZOLE 40 MG IV IVPush SCH ×2 (02:48→16:47)
[2018-02-08] MEDS: NICOTINE 7 MG/24 HR PATCH.TD24 TD SCH (02:48)
[2018-02-08] MEDS: ALBUTEROL SULFATE 2.5 MG/3 ML NPPB SCH ×4 (06:45→19:22)
[2018-02-08 08:30] VITALS: BP 124/76
[2018-02-08 18:34] VITALS: BP 134/81
[2018-02-09 00:27] VITALS: BP 122/85
[2018-02-09] MEDS: HEPARIN 5,000 UNITS/ML, 1ML SQ SCH ×2 (02:06→09:28)
[2018-02-09] MEDS: PANTOPRAZOLE 40 MG IV IVPush SCH ×2 (02:13→13:51)
[2018-02-09] MEDS: NICOTINE 7 MG/24 HR PATCH.TD24 TD SCH (02:13)
[2018-02-09] MEDS: ALBUTEROL SULFATE 2.5 MG/3 ML NPPB SCH ×3 (02:54→10:54)
[2018-02-09] MEDS: OXYcodone IR 5MG TABLET PO PRN ×2 (02:59→09:34)
[2018-02-09 06:36] VITALS: BP 108/75
[2018-02-09] MEDS ORDERED: PANT40TA3 PO (12:11)
[2018-02-09 14:05] VITALS: BP 98/63
== END 2018-02-09 16:07 | disposition home or self-care (01) | DRG 391 ==
LOC: ED 02-06 01:06 → EDIP 02-06 01:22 → 3NE 02-06 02:05 → DCLOUNGE 02-09 15:46
PROVIDERS: ADMIT Internal Medicine; ATTEND Hospitalist
DX: K29.80 Duodenitis without bleeding (principal); E43 Unspecified severe protein-calorie malnutrition; J96.10 Chronic respiratory failure, unspecified whether with hypoxia or hypercapnia; Z68.1 Body mass index [BMI] 19.9 or less, adult; E87.6 Hypokalemia; I50.9 Heart failure, unspecified; G89.29 Other chronic pain; Z87.01 Personal history of pneumonia (recurrent); M25.551 Pain in right hip; M54.2 Cervicalgia; M54.9 Dorsalgia, unspecified; R19.5 Other fecal abnormalities; D64.9 Anemia, unspecified; D72.829 Elevated white blood cell count, unspecified; E86.0 Dehydration; F17.200 Nicotine dependence, unspecified, uncomplicated; I11.0 Hypertensive heart disease with heart failure; J44.9 Chronic obstructive pulmonary disease, unspecified; Z87.11 Personal history of peptic ulcer disease; Z90.710 Acquired absence of both cervix and uterus; Z99.81 Dependence on supplemental oxygen; Z98.1 Arthrodesis status; Z90.49 Acquired absence of other specified parts of digestive tract
CPT/HCPCS: 36415; 74176; 80048; 80053; 80061; 81001; 82040; 83036; 83540; 83550; 83690; 83735; 84100; 84439; 84443; 84484; 85025; 87040; 93005; 94640; 96361; 96374; 96375; J2405; J3480; J7042; J7613; C9113; J2270; J7030; J7040